=== PATIENT | female | born 1980 | race Caucasian/White ===

== ENCOUNTER 2021-06-15 07:10 | Inpatient (IN) | payer OTHER ==
[2021-06-15] MEDS: DEXTROSE 5%-LACTATED RINGERS 1,000 ML IV SCH ×2 (08:30→16:24)
[2021-06-15 09:38] VITALS: BMI 31.4
[2021-06-15] MEDS ORDERED: OXYTOCIN 30 UNITS in 0.9% NS 30 UNIT/500 ML INFUS.BAG IVPB SCH (09:45)
[2021-06-15 10:13] LABS: BASO % 0.4 % (0-2.0); EOS % 0.8 % (0-4.5); HEMATOCRIT 38.5 % (32.4-45.2); HEMOGLOBIN 12.6 GM/dL (10.7-15.3); LYMPH % 35.2 % (8-40); MCHC 32.8 g/dl (32.0-36.0); MEAN CELL VOLUME 79.4 fl (80-96); MEAN PLT VOLUME 7.8 fl (7.5-11.1); MONO % 5.9 % (3.8-10.2); NEUT % 57.7 % (42.8-82.8); PLATELET COUNT 195 10^3/uL (134-434); RBC 4.84 M/mm3 (3.60-5.2); WHITE BLOOD COUNT 5.6 K/mm3 (4.0-10.0)
[2021-06-15 10:20] LABS: INR 0.91 (0.83-1.09); PROTHROMBIN TIME (PATIENT) 10.6 SEC (9.7-13.0)
[2021-06-15 10:22] LABS: ACTIVATED PTT 25.6 SECONDS (25.2-36.5)
[2021-06-15 10:59] LABS: CALCIUM 8.4 mg/dL (8.5-10.1)
[2021-06-15 11:03] LABS: CREATININE 0.5 mg/dL (0.55-1.3)
[2021-06-15 12:09] LABS: HIV INTERPRETATION NEGATIVE (NEGATIVE)
[2021-06-15] MEDS ORDERED: BUTORPHANOL TARTRATE 2 MG/ML VIAL IVPB ONE (18:30)
[2021-06-15] MEDS ORDERED: PROMETHAZINE HCL 25 MG/1 ML VIAL IVPB ONE (18:30)
[2021-06-15] MEDS: OXYTOCIN 20 UNITS in 0.9% NS 20 UNIT/1,000 ML INFUS.BAG IV SCH (20:00)
[2021-06-15] MEDS ORDERED: BENZOCAINE 20% 57 GM BOTTLE TP PRN (20:19)
[2021-06-15] MEDS ORDERED: ACETAMINOPHEN 325 MG TABLET (FP) PO PRN (20:19)
[2021-06-15] MEDS ORDERED: BENZOCAINE 28 GM HEMORRHOIDAL OINTMENT TP PRN (20:19)
[2021-06-15] MEDS ORDERED: BISACODYL 10 MG SUPP.RECT RC PRN (20:19)
[2021-06-15] MEDS ORDERED: oxyCODONE HCL 5 MG TABLET PO PRN (20:19)
[2021-06-15] MEDS ORDERED: WITCH HAZEL 50% (TUCKS) 40 PAD/JAR PAD TP PRN (20:19)
[2021-06-15] MEDS ORDERED: METHYLERGONOVINE MALEATE 0.2 MG/1 ML AMP IM ONE (20:21)
[2021-06-15] MEDS ORDERED: OXYTOCIN 20 UNITS in 0.9% NS 20 UNIT/1,000 ML INFUS.BAG IV ONE (22:49)
[2021-06-16] MEDS: METHYLERGONOVINE MALEATE 0.2 MG/1 ML AMP IM PRN ×2 (00:30→05:00)
[2021-06-16] MEDS: METHYLERGONOVINE MALEATE 0.2 MG TABLET (FP) PO SCH ×3 (00:48→13:48)
[2021-06-16] MEDS: OXYTOCIN 20 UNITS in 0.9% NS 20 UNIT/1,000 ML INFUS.BAG IV SCH (02:30)
[2021-06-16 06:51] LABS: BASO % 0.3 % (0-2.0); EOS % 0.8 % (0-4.5); HEMATOCRIT 32.5 % (32.4-45.2); HEMOGLOBIN 11.7 GM/dL (10.7-15.3); LYMPH % 36.4 % (8-40); MCH 30.5 pg (25.7-33.7); MCHC 35.9 g/dl (32.0-36.0); MEAN CELL VOLUME 84.8 fl (80-96); MEAN PLT VOLUME 9.6 fl (7.5-11.1); MONO % 7.6 % (3.8-10.2); NEUT % 54.9 % (42.8-82.8); PLATELET COUNT 174 10^3/uL (134-434); RBC 3.83 M/mm3 (3.60-5.2); RDW 14.7 % (11.6-15.6); WHITE BLOOD COUNT 7.6 K/mm3 (4.0-10.0)
[2021-06-16] MEDS ORDERED: IBUPROFEN 600 MG TABLET (FP) PO ONE (07:37)
[2021-06-16] MEDS: IBUPROFEN 600 MG TABLET (FP) PO PRN ×2 (07:40→20:39)
[2021-06-16] MEDS: PRENATAL VITAMINS W/ FOLIC ACID TABLET (FP) PO SCH (10:00)
[2021-06-16] MEDS ORDERED: PRENATAL VITAMINS W/ FOLIC ACID TABLET (FP) PO ONE (10:01)
[2021-06-16] MEDS: DEXTROSE 5%-LACTATED RINGERS 1,000 ML IV SCH (13:48)
[2021-06-16] MEDS ORDERED: SENNOSIDES/DOCUSATE COMBO (SENNA PLUS) TABLET (UD) PO PRN (22:00)
[2021-06-17 08:45] VITALS: BP 115/77; PULSE 75; TEMP 98
[2021-06-17] MEDS ORDERED: DIPHTH,PERTUSS(ACELL),TET 0.5 ML DISP.SYRIN IM ONE (09:00)
[2021-06-17] MEDS: PRENATAL VITAMINS W/ FOLIC ACID TABLET (FP) PO SCH (09:21)
[2021-06-17] MEDS: IBUPROFEN 600 MG TABLET (FP) PO PRN (09:22)
== END 2021-06-17 13:45 | disposition home or self-care (01) | DRG 807 ==
LOC: JLDR 07:10 → J3W 06-16 13:30
PROVIDERS: ADMIT Obstetrics & Gynecology; ATTEND Obstetrics & Gynecology
PROC: 10E0XZZ Delivery of Products of Conception, External Approach (ICD-10-PCS; principal; 2021-06-15)
PROC: 0W8NXZZ Division of Female Perineum, External Approach (ICD-10-PCS; 2021-06-15)
PROC: 10907ZC Drainage of Amniotic Fluid, Therapeutic from Products of Conception, Via Natural or Artificial Opening (ICD-10-PCS; 2021-06-15)
DX: O80 Encounter for full-term uncomplicated delivery (principal); Z37.0 Single live birth; Z3A.39 39 weeks gestation of pregnancy
CPT/HCPCS: 36415; 59409; 80048; 85025; 85610; 85730; 86780; 86850; 86900; 86901; 87389; 90715; C9803; U0003; U0005